=== PATIENT | female | born 1975 | race Hispanic/Latino ===

== ENCOUNTER 2019-02-08 16:03 | Emergency (ER) | payer BC ==
[2019-02-08] MEDS ORDERED: methylPREDNISolone Sod Succ/PF 125 MG/2 ML VIAL ONE (16:22)
[2019-02-08] MEDS ORDERED: Famotidine/PF 20 mg/2ml Vial ONE ×2 (16:22→16:23)
[2019-02-08 16:49] LABS: #Eosinphils 0.2 thou/uL (0.0-0.7); #Lymphocytes 2.6 thou/uL (1.20-3.40); #Monocytes 0.3 thou/uL (0.11-0.59); #Neutrophils 5.8 thou/uL (1.40-6.50); %Basophils 0.3 % (0.0-1.0); %Lymphocytes 28.8 % (21.0-51.0); %Monocytes 3.6 % (0.0-10.0); %Neutrophils 65.2 % (42.0-75.0); Hemoglobin 14.4 g/dL (12.0-16.0); Mean Corpuscular HGB CONC 34.4 g/dL (32.0-36.0); Mean Corpuscular Hemoglobin 30.1 pg (27.0-31.0); Mean Corpuscular Volume 87.6 fL (78.0-98.0); Mean Platelet Volume 7.9 fL (7.4-10.4); Platelet Count 216 thou/uL (130-400); RBC Distribution Width 11.8 % (11.5-14.5); Red Blood Cell (RBC) Count 4.77 mill/uL (4.20-5.40); White Blood Cell (WBC) Count 8.8 thou/uL (4.8-10.8)
[2019-02-08] MEDS ORDERED: diphenhydrAMINE 50 MG/ML VIAL ONE (16:57)
[2019-02-08 17:13] LABS: ALT (SGPT) 33 U/L (8-55); AST (SGOT) 54 U/L (5-34); Albumin 4.2 g/dL (3.5-5.0); Alkaline Phosphatase 139 U/L (40-150); Anion Gap 13 mmol/L (10-20); BUN (Urea Nitrogen) 9 mg/dL (7.0-18.7); Bilirubin, Total 0.8 mg/dL (0.2-1.2); Calc. Creatinine Clearance 0 mL/min (70-130); Calcium 9.6 mg/dL (7.8-10.44); Carbon Dioxide 21 mmol/L (22-29); Chloride 111 mmol/L (98-107); Estimated GFR-MDRD Greater than 90; Globulin 3.3 g/dL (2.4-3.5); Glucose 116 mg/dL (70-105); Lipase 36 U/L (8-78); Potassium 3.6 mmol/L (3.5-5.1); Protein, Total 7.5 g/dL (6.0-8.3); Sodium 141 mmol/L (136-145)
[2019-02-08 17:45] LABS: Pregnancy Test - Urine (BHCG) Negative (Negative); Pregu Control Background? CLEAR/WHITE (CLR/WHITE); Pregu Control Bar Appear? YES (CONTROL BAR); Specific Gravity 1.004 (1.002-1.036)
--- NOTE | 2019-02-08 18:11 | CT ---
CT ABDOMEN AND PELVIS WITH IV CONTRAST: 02/08/19 HISTORY: Lower abdominal pain with onset of symptoms this morning. Nausea, vomiting, and constipation. COMPARISON: None. FINDINGS: There is atelectasis present at each lung base. Post cholecystectomy changes are seen. The spleen is at the upper limits of normal in size. The liver, pancreas, bilateral adrenal glands, kidneys, abdominal aorta, and urinary bladder demonstr ate a normal CT appearance. There is colonic diverticulosis with multiple colonic diverticula seen throughout the colon extending from the ascending colon to the sigmoid colon. There is pericolonic inflammatory changes as well as bowel wall thickening involving the proximal sigmoid colon and distal descending colon compatible wit h diverticulitis. No free intraperitoneal gas is seen, and there is no fluid collection seen to sugge st an abscess. Loops of small bowel are normal in caliber. There is evidence of prior hysterectomy. No suspicious lytic or sclerotic osseous lesions are identified. IMPRESSION: Diverticulitis involving the proximal sigmoid colon. Follow-up evaluation after treatment is recommen ded to ensure resolution of the bowel wall thickening. POS: [facility]
== END 2019-02-08 18:36 | disposition home or self-care (01) ==
LOC: ERS 16:03
DX: K57.32 Diverticulitis of large intestine without perforation or abscess without bleeding (principal); E10.9 Type 1 diabetes mellitus without complications; Z79.84 Long term (current) use of oral hypoglycemic drugs
CPT/HCPCS: 36415; 74177; 80053; 81025; 83690; 85025; 96365; 96375; J1200; J2930; S0028